=== PATIENT | male | born 1945 | race Caucasian/White ===

== ENCOUNTER 2024-01-10 12:04 | Observation (INO) | payer MEDICARE, OTHER, SELFPAY ==
[2024-01-10 12:21] VITALS: BP 120/80; PULSE 90; RESP 22; TEMP 36.4; O2SAT 98; BMI 26.1
--- NOTE | 2024-01-10 13:33 | XR_ITS ---
PROCEDURE INFORMATION: Exam: XR Chest Exam date and time: 01/10/2024 2:08 PM Age: 78 years old Clinical indication: Shortness of breath; Additional info: kiarra MORENO TECHNIQUE: Imaging protocol: Radiologic exam of the chest. Views: 1 view. COMPARISON: No relevant prior studies available. FINDINGS: Lungs: Unremarkable. No consolidation. Pleural spaces: Unremarkable. No pleural effusion. No pneumothorax. Heart/Mediastinum: Unremarkable. No cardiomegaly. Bones/joints: Unremarkable. IMPRESSION: No acute findings.
--- NOTE | 2024-01-10 13:41 | ECG_ITS ---
APPROVED REPORT Exam: Resting ECG HR:109 bpm ECG Measurements Heart Rate 109 AXES QRSd 114 QRS 5 QT 347 T -4 QTc 411 Conclusion ATRIAL FLUTTER/TACHYCARDIA WITH RAPID VENTRICULAR RESPONSE INCOMPLETE RIGHT BUNDLE BRANCH BLOCK [90+ ms QRS DURATION, TERMINAL R IN V1/V2, 40+ ms S IN I/aVL/V4/V5/V6] NONSPECIFIC T-WAVE ABNORMALITY ABNORMAL RHYTHM ECG UNCONFIRMED REPORT Electronically signed by : Dharmesh Ann MD 01/10/2024 17:49:37
[2024-01-10] MEDS: DOCUSATE SODIUM 100 MG CAPSULE PO (14:29)
[2024-01-10 15:31] VITALS: BP 104/55; PULSE 110; RESP 18; TEMP 36.6; O2SAT 96
[2024-01-10 16:00] VITALS: PULSE 130
--- NOTE | 2024-01-10 16:16 | P.HP_ITS ---
History of Present Illness *Admission Date: 01/10/24 *Reason for visit:: chest discomfort *History of present illness: Patient is a 78-year-old male with past medical history of hyperlipidemia, who presents to the hospital due to sudden onset shortness of breath as well as tightness in the chest. According to patient he had tightness in his chest yesterday and today morning he felt a funny sensation in his chest. Otherwise denied associated nausea vomiting diarrhea constipation dysuria fevers and chills. Patient mentions he has not started using albuterol for sore throat/congestion. Denied diarrhea constipation dysuria. [facility] Disclaimer: The information contained in this section may have been updated after the patient was seen, as this information can be updated by other users. Medical History (Updated 01/10/24 @ 16:17 by Macho Chow MD) Hyperlipidemia Sleep apnea Social History (Updated 01/10/24 @ 12:57 by Love Liu RN) Smoking Status: Former smoker alcohol intake: never current occupational status: retired Travel in the last 8 weeks: None Review of Systems Review of Systems Review of systems (narrative): as per [facility] Meds Home Medications and Allergies Home Medications Medication Instructions Recorded Confirmed Type aspirin 81 mg capsule 81 mg PO WEEKLY 01/10/24 01/10/24 History omeprazole 20 mg capsule,delayed 20 mg PO BID 01/10/24 01/10/24 History release pravastatin 10 mg tablet 10 mg PO HS 01/10/24 01/10/24 History sucralfate 1 gram tablet 1 g PO QID PRN Acid Reflux 01/10/24 01/10/24 History tadalafil 20 mg tablet 20 mg PO DAILY PRN Erectile 01/10/24 01/10/24 History Dysfunction New Prescriptions to Start Prescriptions: Allergies Allergy/AdvReac Type Severity Reaction Status Date / Time Penicillins Allergy Anaphylaxis Verified 01/10/24 12:20 acetaminophen [From Percocet] AdvReac Verified 01/10/24 12:20 codeine AdvReac Verified 01/10/24 12:20 hydrocodone AdvReac Verified 01/10/24 12:20 ibuprofen AdvReac Verified 01/10/24 12:20 oxycodone [From Percocet] AdvReac Verified 01/10/24 12:20 Exam Data for Last 24 hours Vital signs and Labs for Last 24 Hours: Temp Pulse Resp BP Pulse Ox O2 Del Method 97.9 F 110 H 18 104/55 L 96 Room Air 01/10/24 15:31 01/10/24 15:31 01/10/24 15:31 01/10/24 15:31 01/10/24 15:31 01/10/24 15:31 I & O for Last 24 hours: Intake & Output 01/07/24 01/08/24 01/09/24 01/10/24 23:59 23:59 23:59 23:59 Weight 82.667 kg Constitutional Constitutional: no acute distress *Routine HEENT Exam Head: Present normocephalic Eye: Present EOMI and PERRL ENT: Present mucous membranes moist *Routine Neck Exam Neck: Present supple; Absent lymphadenopathy *Routine Respiratory Exam Respiratory: Present CTA bilaterally *Routine Cardiovascular Exam Cardiovascular: Present irregular rhythm *Routine Abdominal Exam Abdominal: Present soft and normoactive bowel sounds; Absent tenderness *Routine Rectal Exam Rectal:: deferred *Routine Genitalia Exam Genitalia:: deferred *Routine Extremities Exam Extremities: Absent cyanosis, clubbing or edema *Routine Skin Exam Skin: Present warm; Absent rash *Routine Neurological Exam Neurological: Present alert and oriented X3 Assessment and Plan *Assessment and plan (1) Afib: Status: Acute Category: Medical Code(s): I48.91 - Unspecified atrial fibrillation (2) Hyperlipidemia: Status: Acute Category: Medical Code(s): E78.5 - Hyperlipidemia, unspecified Plan Patient is a 78-year-old male with past medical history of hyperlipidemia, who presents to the hospital due to sudden onset shortness of breath as well as tightness in the chest. According to patient he had tightness in his chest yesterday and today morning he felt a funny sensation in his chest. Otherwise denied associated nausea vomiting diarrhea constipation dysuria fevers and chills. Patient mentions he has not started using albuterol for sore throat/congestion. Denied diarrhea constipation dysuria. Assessment and plan A-fib with RVR, new onset Hyperlipidemia Monitor on cardiac telemetry Check TSH CHADS2 Vasc score 2 - Age >75, will start therapeutic lovenox Monitor and replace electrolytes Check echocardiogram Consult cardiology Patient's heart rate is 105 Will order Lopressor with parameters resume home statin DVT prophylaxis-Lovenox therapeutic dose
[2024-01-10 17:19] LABS: Basophils % 0.1 % (0.1-2.0); Eosinophils % 0.1 % (0.1-12.0); Hematocrit 41.4 % (42.0-52.0); Hemoglobin 13.5 g/dL (14.1-18.0); Lymphocytes # 0.4 K/mm3 (0.7-4.5); Mean Corpuscular HGB Conc 32.5 g/dL (31.8-35.4); Mean Corpuscular Hemoglobin 31.3 pg (27.0-31.2); Mean Corpuscular Volume 96.5 fl (80-94); Monocytes # 0.1 K/mm3 (0.1-1.0); Monocytes % 1.5 % (1.7-9.3); Neutrophils # 3.9 K/mm3 (1.8-7.8); Neutrophils % 88.3 % (37.0-80.0); Platelet Count 177 K/mm3 (142-424); Red Blood Count 4.29 M/mm3 (4.60-6.20); White Blood Count 4.5 K/mm3 (4.8-10.8)
[2024-01-10 17:21] LABS: Chloride 107 mmol/L (98-107); Potassium 3.6 mmoL/L (3.5-5.1); Sodium 139 mmol/L (136-145)
[2024-01-10 17:22] LABS: MANUAL DIFFERENTIAL MANUAL DIFFERENTIAL (MANUAL DIFF)
[2024-01-10 17:24] VITALS: BP 95/61; PULSE 123; RESP 20
[2024-01-10 17:24] LABS: Anion Gap 6.6 mEq/L (5-15); Blood Urea Nitrogen 12 mg/dl (9-20); Carbon Dioxide 29 mmol/L (22.0-30.0); Creatinine Clearance Estimated 69 mL/min (50-200); Estimated Glomerular Filt Rate 93 ml/min (>60); GFR (African American) 113 ML/MIN (>60)
[2024-01-10 17:25] LABS: Calcium 8.9 mg/dl (8.4-10.2); Glucose 238 mg/dl (74-100)
[2024-01-10] MEDS: ASPIRIN 81 MG 81 EACH PO (17:25)
[2024-01-10] MEDS: METOPROLOL TARTRATE 5MG/5ML VIAL 5 MG IV (17:25)
[2024-01-10 17:44] LABS: Lymphocytes % 11 % (10-50); Neutrophils % 89 % (42-76); Platelet Estimate Normal; RBC Morphology Normal; Total Cells Counted 100
[2024-01-10 17:56] LABS: Thyroid Stimulating Hormone 0.81 uIU/mL (0.465-4.68)
[2024-01-10] MEDS: FLUTICASONE PROP 50MCG NASAL SPRAY 16GM 2 SPRAY NS (18:14)
[2024-01-10 18:29] LABS: Troponin I < 0.01 ng/ml (0.00-0.034)
[2024-01-10 20:00] VITALS: BP 100/59; PULSE 100; PULSE 99; RESP 20; TEMP 36.7; O2SAT 97
[2024-01-10 20:24] LABS: Troponin I < 0.01 ng/ml (0.00-0.034)
[2024-01-11] VITALS (8 sets, daily range): BP systolic 104–153; BP diastolic 59–80; PULSE 71–112; RESP 16–18; TEMP 36.4–36.8; O2SAT 94–97; BMI 26.0
--- NOTE | 2024-01-11 05:25 | PC.NURSE ---
pt. has rested well this shift, A&OX4, no c/o pain, afib on tele with a HR 80s-110s, call button is in reach
[2024-01-11 07:46] LABS: Basophils % 0.2 % (0.1-2.0); Calcium 9.4 mg/dl (8.4-10.2); Carbon Dioxide 27 mmol/L (22.0-30.0); Chloride 107 mmol/L (98-107); Eosinophils % 0.1 % (0.1-12.0); Glucose 108 mg/dl (74-100); Hematocrit 41.9 % (42.0-52.0); Hemoglobin 13.4 g/dL (14.1-18.0); Lymphocytes # 1.5 K/mm3 (0.7-4.5); Lymphocytes % 12.7 % (10-50); Mean Corpuscular HGB Conc 32.1 g/dL (31.8-35.4); Mean Corpuscular Hemoglobin 31.1 pg (27.0-31.2); Mean Corpuscular Volume 97.1 fl (80-94); Mean Platelet Volume 8.9 fl (7.4-10.4); Monocytes # 0.6 K/mm3 (0.1-1.0); Monocytes % 5.3 % (1.7-9.3); Neutrophils # 9.7 K/mm3 (1.8-7.8); Neutrophils % 81.6 % (37.0-80.0); Platelet Count 195 K/mm3 (142-424); Red Blood Count 4.32 M/mm3 (4.60-6.20); Red Cell Distribution Width 14.1 % (11.5-17.5); Sodium 138 mmol/L (136-145); White Blood Count 11.9 K/mm3 (4.8-10.8)
[2024-01-11 07:47] LABS: Anion Gap 8.3 mEq/L (5-15); Blood Urea Nitrogen 19 mg/dl (9-20); Creatinine Clearance Estimated 69 mL/min (50-200); Estimated Glomerular Filt Rate 81 ml/min (>60); GFR (African American) 98 ML/MIN (>60); Magnesium 2.2 mg/dl (1.6-2.3); Potassium 4.3 mmoL/L (3.5-5.1)
[2024-01-11] MEDS: DOCUSATE SODIUM 100 MG CAPSULE PO (09:53)
[2024-01-11] MEDS: PANTOPRAZOLE 40MG TABLET 40 MG PO ×2 (09:53→20:09)
[2024-01-11] MEDS: ENOXAPARIN 100MG/ML SYRINGE 85 MG SQ ×2 (09:53→20:09)
--- NOTE | 2024-01-11 15:45 | PC.NURSE ---
VS stable. No SOB or chest pain noted. Patient a fib on monitor. Hear rate between 80-110's. Patient remained on room air.
[2024-01-11] MEDS: FLUTICASONE PROP 50MCG NASAL SPRAY 16GM 2 SPRAY NS (16:13)
[2024-01-11] MEDS: PRAVASTATIN 20MG TAB 10 MG PO (20:10)
[2024-01-11] MEDS: GUAIFENESIN/DEXTROMETHORPHAN 200MG/20MG 10ML UDC 5 ML PO (20:19)
[2024-01-12] VITALS: BP 117/70; PULSE 100; PULSE 102; RESP 20; TEMP 36.7; O2SAT 95
[2024-01-12 04:00] VITALS: BP 116/82; PULSE 104; PULSE 120; RESP 20; TEMP 36.4; O2SAT 95; BMI 24.0
[2024-01-12] MEDS: GUAIFENESIN/DEXTROMETHORPHAN 200MG/20MG 10ML UDC 5 ML PO (04:52)
[2024-01-12 06:47] LABS: Basophils % 0.3 % (0.1-2.0); Eosinophils # 0.5 K/mm3 (0.0-0.4); Eosinophils % 5.9 % (0.1-12.0); Hematocrit 40.9 % (42.0-52.0); Hemoglobin 13.4 g/dL (14.1-18.0); Lymphocytes # 1.7 K/mm3 (0.7-4.5); Lymphocytes % 21.8 % (10-50); Mean Corpuscular HGB Conc 32.8 g/dL (31.8-35.4); Mean Corpuscular Hemoglobin 31.2 pg (27.0-31.2); Mean Corpuscular Volume 95.3 fl (80-94); Monocytes # 0.4 K/mm3 (0.1-1.0); Monocytes % 4.8 % (1.7-9.3); Neutrophils # 5.2 K/mm3 (1.8-7.8); Neutrophils % 67.2 % (37.0-80.0); Platelet Count 197 K/mm3 (142-424); Red Blood Count 4.29 M/mm3 (4.60-6.20); Red Cell Distribution Width 14.2 % (11.5-17.5); White Blood Count 7.7 K/mm3 (4.8-10.8)
--- NOTE | 2024-01-12 06:57 | PC.NURSE ---
pt A&Ox4, reports difficulty sleeping due to coughing through the night, medicated prn per mar for cough, pt. ambulates independently, afib on tele with HR between 80s-110s, when ambulating HR goes up to 120s-130s but comes back down when resting, no other needs voiced, call button is in reach.
[2024-01-12 07:01] LABS: Anion Gap 7.7 mEq/L (5-15); Blood Urea Nitrogen 19 mg/dl (9-20); Calcium 8.9 mg/dl (8.4-10.2); Carbon Dioxide 28 mmol/L (22.0-30.0); Chloride 106 mmol/L (98-107); Creatinine Clearance Estimated 69 mL/min (50-200); Estimated Glomerular Filt Rate 81 ml/min (>60); GFR (African American) 98 ML/MIN (>60); Glucose 100 mg/dl (74-100); Potassium 3.7 mmoL/L (3.5-5.1); Sodium 138 mmol/L (136-145)
[2024-01-12 08:00] VITALS: BP 114/74; PULSE 110; PULSE 130; RESP 16; TEMP 36.4; O2SAT 97
[2024-01-12] MEDS: METOPROLOL SUCCINATE XL 50MG TABLET 50 MG PO (08:29)
[2024-01-12] MEDS: DOCUSATE SODIUM 100 MG CAPSULE PO (08:30)
[2024-01-12] MEDS: PANTOPRAZOLE 40MG TABLET 40 MG PO (08:30)
[2024-01-12] MEDS: ASPIRIN EC 81MG TABLET 81 MG PO (08:30)
[2024-01-12] MEDS: ENOXAPARIN 100MG/ML SYRINGE 85 MG SQ (08:30)
[2024-01-12] MEDS: FLUTICASONE PROP 50MCG NASAL SPRAY 16GM 2 SPRAY NS (08:31)
--- NOTE | 2024-01-12 08:59 | CA_ITS ---
APPROVED REPORT EXAM: Comprehensive 2D, Doppler, and color-flow Echocardiogram Tube Former Operator: Kaylin Velazquez CRT Ht: 5 ft 10 in Wt: 182lbs BSA: 2.01 BP: 104/55 mmHg Indications: Chest Pain, Shortness of Breath, Atrial Fibrillation, Hyperlipidemia 2D Dimensions LA Volume 74.10 mL LA Volume Index 36.10 mL/m2 (M/F) 16-34 M-Mode Dimensions RVDd 3.84 cm (0.9-2.6) LA Diam 4.49 cm (1.9-4.0) LVDd 3.90 cm (3.5-5.7) LVDs 2.59 cm (3.5-5.7) IVSd 1.62 cm (0.6-1.1) PWd 0.66 cm (0.6-1.1) EF (Teich) 63.00% FS 33.60% EDV (Teich) 65.90 mL TAPSE 0.80 (<1.7) ESV (Teich) 24.40 mL LV Diastology E Decel Time 203 (160-240 msec) E/A Ratio 3.37 MED A' 2.80 cm/s LAT A' 4.20 cm/s Aortic Valve AI PHT 466.00 ms AO Peak GR. 8.50 mmHg Mitral Valve MV E Max Eddie. 84.0 (40-130 cm/s) MV A Velocity 25.0 (40-130 cm/s) E/A Ratio 3.37 MV PHT 60.0 ms Pulmonary Valve PV Peak Velocity 105.0 (50-150 cm/s) Tricuspid Valve TR P. Velocity 219.00 cm/s RAP Estimate 10.00 mmHg RVSP 29.30 mmHg Left Ventricle The left ventricle is normal size. The left ventricular systolic function is low-normal. There is increased left ventricular wall thickness. Borderline global hypokinesis is present. The left ventricular diastolic function is indeterminate. LVEF is 50%. Right Ventricle The right ventricle is mildly dilated. The right ventricular systolic function is normal. Atria Left atrium is mildly dilated. Right atrium is mildly dilated. There is no Doppler evidence of interatrial shunt. Aortic Valve The aortic valve is mildly thickened. There is no aortic valvular stenosis. Mild aortic regurgitation. Mitral Valve The mitral valve is mildly thickened. No evidence of mitral valve stenosis. Mild mitral regurgitation. Tricuspid Valve The tricuspid valve leaflets are thin and pliable. Mild tricuspid regurgitation. RVSP is 25-30 mmHg. Pulmonic Valve The pulmonary valve is normal in structure. Trace pulmonic regurgitation. Great Vessels The aortic root is normal in size. The ascending aorta is mildly dilated, measuring 3.8 cm in diameter. IVC is normal in size and collapses >50% with inspiration. Pericardium There is no pericardial effusion. Other Information Study Quality: Fair Conclusion Low-normal LV systolic function (LVEF 50%). Mild RV dilation. Mild biatrial dilation. Mild AI, mild MR, mild TR, mild PI. RVSP 25-30 mmHg. Electronically signed by : Raven Fernandes MD 01/13/2024 22:03:49
--- NOTE | 2024-01-12 10:04 | EXP.CARD.CON ---
History of Present Illness History of Present Illness Consult date: 01/12/24 Requesting physician: Macho Chow Consult reason: atrial fibrillation Chief complaint: Shortness of breath, weakness Additional Medical History:: 1. History of pancreatitis secondary to gallbladder sludge A. History of sphincterotomy 2. History of atrial fibrillation during episode of pancreatitis associated with #1 3. Remote history of stress test approximately 10 years ago reportedly normal 4. Hyperlipidemia 5. Obstructive sleep apnea, on sleep apnea therapy 6. History of vasovagal syncope related to discomfort from pancreatitis History of present illness: 78-year-old white male admitted for atrial fibrillation with rapid response. Patient relates several days history of fatigue and shortness of breath which she felt was related to nasal congestion and possible asthma. He does not carry a diagnosis of asthma but has an albuterol inhaler which he is recently started using due to shortness of breath he feels related to seasonal allergies. On the day of admission he did take a Sudafed and took 2 doses of the albuterol inhaler after which he felt his heart speeding up. 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 He denies any further episodes of atrial fibrillation. Ex-smoker, stopped 35 to 40 years ago Nondrinker No history of diabetes or hypertension. He does take a low-dose statin therapy for history of hyperlipidemia On omeprazole for GERD Chest x-ray this admission was unremarkable. EKG shows atrial flutter at a rate of 109 bpm with incomplete right bundle. Echocardiogram pending Mild anemia with hemoglobin 13.4 Troponins normal TSH normal PFSH PFS Disclaimer: The information contained in this section may have been updated after the patient was seen, as this information can be updated by other users. Medical History (Updated 01/12/24 @ 10:15 by YOAN Caldera) COLIN (obstructive sleep apnea) GERD (gastroesophageal reflux disease) Hyperlipidemia Sleep apnea Family History (Updated 01/12/24 @ 08:44 by Marga Melvin RN) Other No significant family history Social History (Updated 01/12/24 @ 08:44 by Marga Melvin RN) Smoking Status: Former smoker alcohol intake: never current occupational status: retired Travel in the last 8 weeks: None Review of Systems Review of Systems Review of systems:: pertinent systems reviewed and negative unless documented below Constitutional Constitutional: Reports fatigue ENT Ears, Nose, Mouth, and Throat: Reports post nasal drip and Reports sinus pressure *Cardiovascular Cardiovascular: Reports rapid heart rate Endocrine Endocrine: Reports fatigue Exam Data for Last 24 hours Vital signs and Labs for Last 24 Hours: Temp Pulse Resp BP Pulse Ox O2 Del Method 97.6 F 130 H 16 114/74 97 Room Air 01/12/24 08:00 01/12/24 08:00 01/12/24 08:00 01/12/24 08:00 01/12/24 08:00 01/12/24 08:39 Laboratory Results - last 24 hr 01/12/24 05:52: WBC 7.7 D, RBC 4.29 L, Hgb 13.4 L, Hct 40.9 L, MCV 95.3 H, MCH 31.2, MCHC 32.8, RDW 14.2, Plt Count 197, MPV 9.0, Neut % (Auto) 67.2, Lymph % (Auto) 21.8, [place]ack[place] % (Auto) 4.8, Eos % (Auto) 5.9, Baso % (Auto) 0.3, Neut # (Auto) 5.2, Lymph # (Auto) 1.7, [place] # (Auto) 0.4, Eos # (Auto) 0.5 H, Baso # (Auto) 0.0, Sodium 138, Potassium 3.7, Chloride 106, Carbon Dioxide 28, Anion Gap 7.7, BUN 19, Creatinine 0.90, Estimated Creat Clear 69, Estimated GFR 81, Est GFR ( Amer) 98, Glucose 100, Calcium 8.9, Magnesium 2.0 I & O for Last 24 hours: Intake & Output 01/09/24 01/10/24 01/11/24 01/12/24 11:59 11:59 11:59 11:59 Intake Total 1080 / 1080 1586 / 1586 Output Total 0 / 0 0 / 0 Balance 1080 / 1080 1586 / 1586 Weight 182 lb 1.6 oz 168 lb Constitutional Constitutional: no acute distress *Routine Respiratory Exam Respiratory: Present CTA bilaterally *Routine Cardiovascular Exam Cardiovascular: Present irregularly irregular *Routine Extremities Exam Extremities: Absent edema Meds Home Medications and Allergies Home Medications Medication Instructions Recorded Confirmed Type aspirin 81 mg capsule 81 mg PO [facility] 01/10/24 01/11/24 History omeprazole 20 mg capsule,delayed 20 mg PO BID gerd 01/10/24 01/10/24 History release pravastatin 10 mg tablet 10 mg PO HS Cholesterol 01/10/24 01/10/24 History sucralfate 1 gram tablet 1 g PO QID PRN Acid Reflux 01/10/24 01/10/24 History tadalafil 20 mg tablet 20 mg PO DAILYP PRN Erectile 01/10/24 01/11/24 History Dysfunction New Prescriptions to Start Prescriptions: Allergies Allergy/AdvReac Type Severity Reaction Status Date / Time Penicillins Allergy Anaphylaxis Verified 01/10/24 12:20 codeine AdvReac Verified 01/10/24 12:20 hydrocodone AdvReac Verified 01/10/24 12:20 ibuprofen AdvReac Verified 01/10/24 12:20 oxycodone [From Percocet] AdvReac Verified 01/10/24 12:20 Assessment and Plan *Assessment and plan (1) Afib: Status: Acute Qualifiers: Atrial fibrillation type: paroxysmal Qualified Code(s): I48.0 - Paroxysmal atrial fibrillation Category: Medical Code(s): I48.91 - Unspecified atrial fibrillation (2) Atrial flutter with rapid ventricular response: Status: Acute Category: Medical Code(s): I48.92 - Unspecified atrial flutter (3) Hyperlipidemia: Status: Acute Qualifiers: Hyperlipidemia type: mixed hyperlipidemia Qualified Code(s): E78.2 - Mixed hyperlipidemia Category: Medical Code(s): E78.5 - Hyperlipidemia, unspecified Plan 1. Atrial fibrillation/atrial flutter on admission with mild RVR in the 120-130 bpm range -Start beta-milagros therapy -Check echo -CHADS-VASC score of 3 (hypertension, age) with recommendation for chronic anticoagulation for stroke risk reduction 2. History of hyperlipidemia -Continue statin therapy Echo shows normal EF with mild RV enlargement and mild reduction in function Pt has converted to NSR on metoprolol. Continue metoprolol succinate 50 mg daily Add Eliquis 5 mg twice daily Patient is stable from a cardiac standpoint for discharge home later today. Home medication recommendations Discontinue aspirin Start Eliquis 5 mg daily Metoprolol succinate 50 mg daily Pravastatin 10 mg daily Omeprazole 20 mg twice daily Follow-up in our office in 1 week.
[2024-01-12 10:20] LABS: Adenovirus,PCR Not Detected (NotDetected); Coronavirus 19, PCR Not Detected (NotDetected); Coronavirus 229E Not Detected (NotDetected); Coronavirus NL63 Not Detected (NotDetected); Coronavirus OC43 Not Detected (NotDetected); Coronovirus HKU1,PCR Not Detected (NotDetected); Human Metapneumovirus Not Detected (NotDetected); Influenza A, PCR Not Detected (NotDetected); Influenza AH1, 2009 Not Detected (NotDetected); Influenza AH1, PCR Not Detected (NotDetected); Influenza AH3,PCR Not Detected (NotDetected); Influenza B, PCR Not Detected (NotDetected); Parainfluenza 1, PCR Not Detected (NotDetected); Parainfluenza 2, PCR Not Detected (NotDetected); Parainfluenza 3, PCR Not Detected (NotDetected); Parainfluenza 4, PCR Not Detected (NotDetected); Respiratory Syncytial Virus Not Detected (NotDetected)
[2024-01-12 12:00] VITALS: BP 115/74; PULSE 75; PULSE 80; RESP 18; TEMP 36.7; O2SAT 96
[2024-01-12] MEDS: SODIUM CHLORIDE NASAL SPRAY 44ML NS (12:22)
[2024-01-12] MEDS: OXYMETAZOLINE NASAL SPRAY 0.05% 15ML NS (12:22)
[2024-01-12 12:53] LABS: Rhinovirus/Enterovirus Detected (NotDetected)
--- NOTE | 2024-01-12 13:31 | EXP.DC.SUM ---
General Admission date:: 01/10/24 Discharge date: 01/13/24 HPI HPI HPI: Patient is a 78-year-old male with past medical history of hyperlipidemia, who presents to the hospital due to sudden onset shortness of breath as well as tightness in the chest. According to patient he had tightness in his chest yesterday and today morning he felt a funny sensation in his chest. Otherwise denied associated nausea vomiting diarrhea constipation dysuria fevers and chills. Patient mentions he has not started using albuterol for sore throat/congestion. Denied diarrhea constipation dysuria. Hospital Course Hospital Course Hospital Course: Patient is a 78-year-old male with past medical history of hyperlipidemia, who presents to the hospital due to sudden onset shortness of breath as well as tightness in the chest. According to patient he had tightness in his chest yesterday and today morning he felt a funny sensation in his chest. Otherwise denied associated nausea vomiting diarrhea constipation dysuria fevers and chills. Patient reports he had URI symptoms for upwards of a week, was feeling short of breath so he used Sudafed and albuterol. Developed tachycardia after this. Found to be in A-fib with RVR. Admitted for further management. Heart rate normal at this time, clinically improving. Stable for discharge home with outpatient follow-up. Problems addressed as follows: A-fib with RVR, new onset Hyperlipidemia -Monitored on telemetry. Cardiology was consulted to assist with care. Patient was started on beta-milagros, will continue metoprolol succinate 50 mg daily at discharge. Started on anticoagulation given his [id number] score of 3. Continue oral anticoagulation to decrease stroke risk. Echocardiogram was obtained, EF appears normal with mild RV enlargement and mild reduction in function. As he is converted to sinus rhythm, stable to discharge home to complete medical management. Follow-up with cardiology in the next 1 to 2 weeks. Continue statin. Home medication recommendations Discontinue aspirin Start Eliquis 5 mg daily Metoprolol succinate 50 mg daily Pravastatin 10 mg daily Omeprazole 20 mg twice daily URI symptoms -Patient swab for comprehensive panel. Found positive for rhino/enterovirus. Recommend symptomatic management with Flonase, saline spray, Afrin 1-2 times a day for the next 3 to 4 days. Counseled on need to not use this medication longer than 3 to 4 days due to risk for rhinitis medicamentosa. Recommend avoiding Sudafed given at likely was a factor in him going back into A-fib. Recommend symptomatic management. No indication for antibiotics at this time. If no improvement by the end of the week, recommend following up with PCP to discuss antibiotics As he will of had symptoms for more than 10 days at that time. Total time spent on discharge 32 minutes in counseling, documentation, chart review, and direct care with patient. Exam Data for Last 24 hours Vital signs and Labs for Last 24 Hours: Temp Pulse Resp BP Pulse Ox O2 Del Method 98.1 F 75 18 115/74 96 Room Air 01/12/24 12:00 01/12/24 12:00 01/12/24 12:00 01/12/24 12:00 01/12/24 12:00 01/12/24 13:00 Laboratory Results - last 24 hr 01/12/24 05:52: WBC 7.7 D, RBC 4.29 L, Hgb 13.4 L, Hct 40.9 L, MCV 95.3 H, MCH 31.2, MCHC 32.8, RDW 14.2, Plt Count 197, MPV 9.0, Neut % (Auto) 67.2, Lymph % (Auto) 21.8, [place] % (Auto) 4.8, Eos % (Auto) 5.9, Baso % (Auto) 0.3, Neut # (Auto) 5.2, Lymph # (Auto) 1.7, [place] # (Auto) 0.4, Eos # (Auto) 0.5 H, Baso # (Auto) 0.0, Sodium 138, Potassium 3.7, Chloride 106, Carbon Dioxide 28, Anion Gap 7.7, BUN 19, Creatinine 0.90, Estimated Creat Clear 69, Estimated GFR 81, Est GFR ( Amer) 98, Glucose 100, Calcium 8.9, Magnesium 2.0 01/12/24 10:05: Chlamy pneumoniae PCR TNP, Adenovirus (PCR) Not detected, B. pertussis DNA (PCR) TNP, Coronavirus OC43 (PCR) Not detected, Coronavirus HKU1 (PCR) Not detected, Coronavirus 229E (PCR) Not detected, SARS-CoV-2 (PCR) Not detected, Coronavirus NL63 (PCR) Not detected, Human Metapneumovir PCR Not detected, Influenza A (H1) PCR Not detected, Influ A (H1N1/09) PCR Not detected, Influenza A (H3) PCR Not detected, Influenza Type A (PCR) Not detected, Influenza Type B (PCR) Not detected, M. pneumoniae (PCR) TNP, Parainfluenza 1 (PCR) Not detected, Parainfluenza 2 (PCR) Not detected, Parainfluenza 3 (PCR) Not detected, Parainfluenza 4 (PCR) Not detected, RSV (PCR) Not detected, Entero/Rhino (PCR) Detected A I & O for Last 24 hours: Intake & Output 01/09/24 01/10/24 01/11/24 01/12/24 23:59 23:59 23:59 23:59 Intake Total 360 / 600 1710 / 1950 1066 / 1066 Output Total 0 / 0 0 / 0 Balance 360 / 600 1710 / 1950 1066 / 1066 Weight 82.667 kg 82.599 kg 76.204 kg Constitutional Constitutional: no acute distress, average body habitus and cooperative *Routine HEENT Exam Head: Present normocephalic Eye: Present EOMI and PERRL ENT: Present mucous membranes moist Comments: mild sinus tenderness, congestion on morning exam, resolved by exam before discharge *Routine Neck Exam Neck: Present supple; Absent lymphadenopathy *Routine Respiratory Exam Respiratory: Present CTA bilaterally; Absent rhonchi, wheezes or crackles *Routine Cardiovascular Exam Cardiovascular: Present RRR *Routine Abdominal Exam Abdominal: Present soft and normoactive bowel sounds; Absent tenderness *Routine Rectal Exam Patient deferred: visual exam *Routine Exam Patient deferred: penile exam *Routine Extremities Exam Extremities: Absent cyanosis, clubbing or edema *Routine Skin Exam Skin: Present warm; Absent rash *Routine Neurological Exam Neurological: Present alert, oriented X3, altered mental status and moving all extremities Results Data Completed and Pending Labs on day of discharge: Labs from last 24 hours 01/12/24 01/12/24 10:05 05:52 WBC 7.7 D RBC 4.29 L Hgb 13.4 L Hct 40.9 L MCV 95.3 H MCH 31.2 MCHC 32.8 RDW 14.2 Plt Count 197 MPV 9.0 Neut % (Auto) 67.2 Lymph % (Auto) 21.8 [place] % (Auto) 4.8 Eos % (Auto) 5.9 Baso % (Auto) 0.3 Neut # (Auto) 5.2 Lymph # (Auto) 1.7 [place] # (Auto) 0.4 Eos # (Auto) 0.5 H Baso # (Auto) 0.0 Sodium 138 Potassium 3.7 Chloride 106 Carbon Dioxide 28 Anion Gap 7.7 BUN 19 Creatinine 0.90 Estimated Creat Clear 69 Estimated GFR 81 Est GFR ( Amer) 98 Glucose 100 Calcium 8.9 Magnesium 2.0 Chlamy pneumoniae PCR TNP Adenovirus (PCR) Not detected B. pertussis DNA (PCR) TNP Coronavirus OC43 (PCR) Not detected Coronavirus HKU1 (PCR) Not detected Coronavirus 229E (PCR) Not detected SARS-CoV-2 (PCR) Not detected Coronavirus NL63 (PCR) Not detected Human Metapneumovir PCR Not detected Influenza A (H1) PCR Not detected Influ A (H1N1/09) PCR Not detected Influenza A (H3) PCR Not detected Influenza Type A (PCR) Not detected Influenza Type B (PCR) Not detected M. pneumoniae (PCR) TNP Parainfluenza 1 (PCR) Not detected Parainfluenza 2 (PCR) Not detected Parainfluenza 3 (PCR) Not detected Parainfluenza 4 (PCR) Not detected RSV (PCR) Not detected Entero/Rhino (PCR) Detected A DS: Diagnosis Discharge Diagnosis (1) Afib: Status: Acute Code(s): I48.91 - Unspecified atrial fibrillation Qualifiers: Atrial fibrillation type: paroxysmal Qualified Code(s): I48.0 - Paroxysmal atrial fibrillation (2) Atrial flutter with rapid ventricular response: Status: Acute Code(s): I48.92 - Unspecified atrial flutter (3) Hyperlipidemia: Status: Acute Code(s): E78.5 - Hyperlipidemia, unspecified Qualifiers: Hyperlipidemia type: mixed hyperlipidemia Qualified Code(s): E78.2 - Mixed hyperlipidemia (4) Rhinovirus: Status: Acute Code(s): B34.8 - Other viral infections of unspecified site (5) URI (upper respiratory infection): Status: Acute Code(s): J06.9 - Acute upper respiratory infection, unspecified Meds Home Medications and Allergies Home Medications Medication Instructions Recorded Confirmed Type omeprazole 20 mg capsule,delayed 20 mg PO BID gerd 01/10/24 01/10/24 History release pravastatin 10 mg tablet 10 mg PO HS Cholesterol 01/10/24 01/10/24 History sucralfate 1 gram tablet 1 g PO QID PRN Acid Reflux 01/10/24 01/10/24 History tadalafil 20 mg tablet 20 mg PO DAILYP PRN Erectile 01/10/24 01/11/24 History Dysfunction apixaban 5 mg tablet (Eliquis) 5 mg PO BID 30 days #60 tabs 01/12/24 Rx fluticasone propionate 50 2 spray intranasal BIDP PRN NASAL 01/12/24 Rx mcg/actuation nasal CONGESTION 30 days #1 ea spray,suspension metoprolol succinate 50 mg 50 mg PO DAILY 30 days #30 tabs 01/12/24 Rx tablet,extended release 24 hr (Toprol XL) oxymetazoline 0.05 % nasal spray 1 spray intranasal BID 3 days #0 ea 01/12/24 Rx (Afrin (oxymetazoline)) New Prescriptions to Start Prescriptions: apixaban [Eliquis] Sidney Manzo fluticasone propionate Sidney Manzo metoprolol succinate [Toprol XL] Sidney Manzo Allergies Allergy/AdvReac Type Severity Reaction Status Date / Time Penicillins Allergy Anaphylaxis Verified 01/10/24 12:20 codeine AdvReac Verified 01/10/24 12:20 hydrocodone AdvReac Verified 01/10/24 12:20 ibuprofen AdvReac Verified 01/10/24 12:20 oxycodone [From Percocet] AdvReac Verified 01/10/24 12:20 Discharge Plan Disposition Patient Disposition: Home, Self-Care Condition: Fair Follow up Plan Follow up with: Steven Moore [Primary Care Provider] - 01/20/24 1:45 pm Jacek Fernandes MD [Staff Physician] - 01/21/24 1:30 pm Prescriptions/Medication Reconciliation: New Eliquis 5 mg Tablet 5 mg PO BID 30 Days Qty: 60 0RF metoprolol succinate [Toprol XL] 50 mg Tablet Extended Release 24 Hr 50 mg PO DAILY 30 Days Qty: 30 0RF fluticasone propionate 50 mcg/actuation [place],Suspension 2 spray intranasal BIDP PRN (Reason: NASAL CONGESTION) 30 Days Qty: 1 0RF oxymetazoline [Afrin (oxymetazoline)] 0.05 % [place],Non-Aerosol 1 spray intranasal BID 3 Days Qty: 0 0RF Rx Instructions: Sent with bottle from hospital. Continued sucralfate 1 gram tablet 1 g PO QID PRN (Reason: Acid Reflux) Patient Comments: TAKE 1 TABLET BY MOUTH 3 TO 4 TIMES DAILY NEEDED Rx Instructions: only take as needed for certain meals pravastatin 10 mg tablet 10 mg PO HS Patient Comments: TAKE 1 TABLET BY MOUTH ONCE DAILY omeprazole 20 mg Capsule,Delayed Release(Dr/Ec) 20 mg PO BID tadalafil 20 mg Tablet 20 mg PO DAILYP PRN (Reason: Erectile Dysfunction) Rx Instructions: administer approximately 30min before sexual activity; do not use more than 1 dose per 24hrs Discontinued aspirin 81 mg Capsule 81 mg PO Rx Instructions: Friday, Friday, Friday Problem Reconciliation Problems Reviewed?: Yes Patient Discharge Instructions ACTIVITY: Continue current activity DIET: continue same diet Patient Instructions: DI for Atrial Fibrillation, DI for Common Cold Providers Primary Care Provider: Steven Moore Admalex Provider: Macho Chow Attending Provider: Macho Chow
--- NOTE | 2024-01-12 14:23 | HMH.PHAINT1 ---
Pharmacy Intervention Comments: Discharge medication counseling provided to discuss indications and possible side effects of the new medicaitons: Eliquis, metoprolol succinate, afrin, and fluticasone propionate spray. The prescriptions were being delivered via meds to beds from [facility]. All of the patient's questions were answered.
--- NOTE | 2024-01-13 15:14 | CARE MANAGER ---
Called and spoke to patient regarding recent discharge. Patient stated that he has started new medication and has stopped the ASA. Patient was aware of scheduled f/u appts and had no questions/concerns at time of call.
== END 2024-01-12 14:47 | disposition home or self-care (01) ==
PROVIDERS: Internal Medicine Adolescent Medicine; Admitting Provider Internal Medicine; PCP Family Medicine; Visit Provider Internal Medicine
DX: E78.5 Hyperlipidemia, unspecified; I48.0 Paroxysmal atrial fibrillation; I48.92 Unspecified atrial flutter; E78.2 Mixed hyperlipidemia; J06.9 Acute upper respiratory infection, unspecified; Z87.891 Personal history of nicotine dependence; R06.02 Shortness of breath; B34.1 Enterovirus infection, unspecified; R05.8 Other specified cough
CPT/HCPCS: G0379; 36415; 71045; 80048; 83735; 84443; 84484; 85007; 85025; 87632; 87635; 93005; 93306; G0378